=== PATIENT | male | born 1955 | race Caucasian/White ===

== ENCOUNTER → 2023-07-02 | Outpatient (CLI) | payer MEDICARE | END | disposition home or self-care (01) | LOC: RESCLI 12:45 | PROVIDERS: ATTEND Family Medicine | DX: I48.91 Unspecified atrial fibrillation (principal); I11.0 Hypertensive heart disease with heart failure; I50.20 Unspecified systolic (congestive) heart failure; E78.5 Hyperlipidemia, unspecified; R33.9 Retention of urine, unspecified; J30.2 Other seasonal allergic rhinitis; Z98.890 Other specified postprocedural states; Z79.82 Long term (current) use of aspirin; Z79.01 Long term (current) use of anticoagulants; Z79.899 Other long term (current) drug therapy ==

== ENCOUNTER 2024-08-28 18:57 | Emergency (ER) | payer MEDICARE ==
[~2024-08-28] VITALS: Ht 187.9 cm; Wt 103.0 kg
[2024-08-29] MEDS ORDERED: SODIUM BICARBONATE 50 MEQ/50 ML SYR IV ONE (12:02)
[2024-08-29] MEDS ORDERED: EPINEPHrine Hydrochloride 1 MG/10 ML SYR IV ONE (12:02)
== END 2024-08-28 20:42 ==
LOC: ED 18:57
DX: I46.9 Cardiac arrest, cause unspecified (principal); I48.91 Unspecified atrial fibrillation; Z98.890 Other specified postprocedural states